=== PATIENT | male | born 1970 | race Caucasian/White ===

== ENCOUNTER → 2018-03-30 09:44 | Outpatient (CLI) | payer OTHER | END | disposition home or self-care (01) | LOC: D.RAD 09:44 | DX: Z02.71 Encounter for disability determination (principal) ==

== ENCOUNTER → 2019-12-09 09:50 | Outpatient (CLI) | payer MEDICAID | END | disposition home or self-care (01) | LOC: D.MRI 09:50 | PROVIDERS: ATTEND Orthopaedic Surgery | DX: R22.42 Localized swelling, mass and lump, left lower limb (principal) ==

== ENCOUNTER → 2020-03-04 08:59 | Outpatient (CLI) | payer MEDICAID | END | disposition home or self-care (01) | LOC: D.NM 02-26 09:00 | PROVIDERS: ATTEND Orthopaedic Surgery | DX: M25.562 Pain in left knee (principal) ==

== ENCOUNTER 2020-07-12 11:56 | Inpatient (IN) | payer MEDICAID ==
[~2020-07-12] VITALS: Ht 175.3 cm; Wt 77.1 kg
--- NOTE | 2020-07-12 12:20 | NUR ---
patient in with c/o ble edema x 2 weeks, carmelo knee pain x 10 days, worse today.
[2020-07-12 12:39] LABS: BASOPHILS 0.2 % (0-2); EOSINOPHILS 0.5 % (0-7); HEMATOCRIT 29.9 % (42.0-54.0); HEMOGLOBIN 10.6 g/dL (13.5-17.5); IMMATURE GRANULOCYTES 0.3 % (0-5); LYMPHOCYTES 12.9 % (15-50); MCHC 35.5 g/dL (31.0-37.0); MCV 109.9 fL (80.0-100.0); MEAN PLATELET VOLUME 9.9 fL (7.4-10.4); MONOCYTES 6.1 % (2-11); PLATELET COUNT 196 10x3/uL (130-400); RBC 2.72 10x6/uL (4.20-6.10); RDW 14.5 % (11.5-14.5); WBC 9.9 10x3/uL (4.8-10.8)
[2020-07-12 12:52] LABS: INR 1.23 (0.85-1.17); PROTIME 15.4 SECONDS (11.6-15.0)
[2020-07-12 12:53] LABS: APTT 33.3 SECONDS (22.8-39.4)
[2020-07-12 12:57] LABS: CALC OSMOLALITY 265 mosm/kg (275-300); CALCIUM 8.1 mg/dL (8.5-10.1); CARBON DIOXIDE 28.1 mmol/L (21.0-32.0); CHLORIDE - SERUM 99 mmol/L (98-107); CREATININE - SERUM 0.7 mg/dL (0.6-1.3); GLUCOSE 83 mg/dL (74-106); POTASSIUM - SERUM 3.1 mmol/L (3.5-5.1); SODIUM 135 mmol/L (136-145); UREA NITROGEN 4 mg/dL (7-18); eGFR NON AFRICAN AMERICAN > 90 mL/min (90-120)
[2020-07-12 13:09] LABS: ALBUMIN 2.4 g/dL (3.4-5.0); ALKALINE PHOSPHATASE 324 U/L (30-120); ALT (SGPT) 102 U/L (10-68); BILIRUBIN - TOTAL 11.17 mg/dL (0.2-1.3); MAGNESIUM - SERUM 1.5 mg/dL (1.8-2.4); PRO BNP 166 pg/mL (0-125); PROTEIN - SERUM 5.5 g/dL (6.4-8.2)
--- NOTE | 2020-07-12 13:13 | NUR ---
carmelo doppler done, pedal pulses present bilateral
[2020-07-12 13:16] LABS: TROPONIN-I < 0.017 ng/mL (0.000-0.060)
--- NOTE | 2020-07-12 15:00 | NUR ---
RECEIVED TO ROOM 2204 VIA WC FROM ER. A/O X3. NO C/O AT THIS TIME. SKIN IS INTACT WITHOUT REDNESS, 3-4 PLUS EDEMA NOTED TO BILATERAL LE. WILL MONITOR. AT BEDSIDE. DENIES NEEDS.
[2020-07-12 15:10] VITALS: BP 116/73; BMI 25.1
--- NOTE | 2020-07-12 15:30 | NUR ---
VOIDED 500CC CLEAR YELLOW URINE.
[2020-07-12] MEDS ORDERED: PLAVIX75 MG PO (15:59)
[2020-07-12] MEDS ORDERED: COREG6.25 MG PO (15:59)
[2020-07-12] MEDS ORDERED: INDOCIN25 MG PO (16:00)
[2020-07-12] MEDS ORDERED: LASIX80 MG PO (16:00)
[2020-07-12] MEDS ORDERED: VALIUM5 MG PO (16:00)
[2020-07-12] MEDS ORDERED: PREDNISONE5 MG PO (16:01)
[2020-07-12] MEDS ORDERED: SYNTHROID150 MCG PO (16:01)
[2020-07-12] MEDS ORDERED: SYMBICORT 80-10.2 GM INH (16:03)
[2020-07-12] MEDS ORDERED: ZYLOPRIM100 MG PO (16:04)
[2020-07-12] MEDS ORDERED: K-DUR20 MEQ PO (16:04)
[2020-07-12] MEDS ORDERED: FOLIC ACID1 MG PO (16:05)
[2020-07-12] MEDS ORDERED: NITROSTAT0.4 MG SL (16:05)
[2020-07-12] MEDS ORDERED: HYDROCODON-ACE1 EA10 PO (16:06)
[2020-07-12 16:43] VITALS: BP 116/73
--- NOTE | 2020-07-12 17:30 | NUR ---
BROUGHT FOOD IN FROM OUTSIDE AND PATIENT ATE 100%. NO CHANGES NOTED. DENIES NEEDS.
[2020-07-12 20:00] VITALS: BP 100/60
[2020-07-13] VITALS (7 sets, daily range): BP systolic 89–112; BP diastolic 54–64; Ht 175.3 cm; Wt 77.1 kg
--- NOTE | 2020-07-13 01:13 | NUR ---
MANUAL BP ASSESSED 112/58
--- NOTE | 2020-07-13 01:15 | NUR ---
PATIENT BECOMING ANXIOUS AND WORRYSOME. PROVIDED SUPPORT TO PATIENT. ADMINISTERED PRN VALUM FOR ANXIETY.
--- NOTE | 2020-07-13 02:28 | NUR ---
PATIENT CALMING, REPORTS "I AM FEELING MUCH BETTER." APPEARS WITH NO DISTRESS. CPOC.
[2020-07-13 04:49] LABS: BASOPHILS 0.1 % (0-2); EOSINOPHILS 0.5 % (0-7); HEMATOCRIT 26.8 % (42.0-54.0); HEMOGLOBIN 9.2 g/dL (13.5-17.5); IMMATURE GRANULOCYTES 0.3 % (0-5); LYMPHOCYTES 18.6 % (15-50); MCH 37.6 pg (26.0-34.0); MCHC 34.3 g/dL (31.0-37.0); MCV 109.4 fL (80.0-100.0); MEAN PLATELET VOLUME 10.3 fL (7.4-10.4); MONOCYTES 6.5 % (2-11); PLATELET COUNT 166 10x3/uL (130-400); RBC 2.45 10x6/uL (4.20-6.10); RDW 14.6 % (11.5-14.5); WBC 7.8 10x3/uL (4.8-10.8)
[2020-07-13 05:09] LABS: ALBUMIN 2.1 g/dL (3.4-5.0); ALKALINE PHOSPHATASE 287 U/L (30-120); ALT (SGPT) 87 U/L (10-68); BILIRUBIN - TOTAL 11.59 mg/dL (0.2-1.3); CALC OSMOLALITY 271 mosm/kg (275-300); CALCIUM 7.7 mg/dL (8.5-10.1); CARBON DIOXIDE 31.4 mmol/L (21.0-32.0); CHLORIDE - SERUM 98 mmol/L (98-107); CREATININE - SERUM 0.7 mg/dL (0.6-1.3); GLUCOSE 89 mg/dL (74-106); MAGNESIUM - SERUM 1.8 mg/dL (1.8-2.4); PROTEIN - SERUM 4.8 g/dL (6.4-8.2); SODIUM 138 mmol/L (136-145); UREA NITROGEN 5 mg/dL (7-18); eGFR NON AFRICAN AMERICAN > 90 mL/min (90-120)
[2020-07-13 05:25] LABS: POTASSIUM - SERUM 2.7 mmol/L (3.5-5.1)
[2020-07-13 14:03] LABS: MAGNESIUM - SERUM 1.8 mg/dL (1.8-2.4); POTASSIUM - SERUM 3.1 mmol/L (3.5-5.1)
[2020-07-13 17:15] LABS: CKMB 0.8 U/L (0.0-3.6); CREATINE KINASE 34 UL (21-232); TROPONIN-I 0.022 ng/mL (0.000-0.060)
--- NOTE | 2020-07-13 17:46 | NUR ---
PT STATED FEELING RESTLESS AND ANXIOUS AND REQUESTED VALIUM MEDICATION. HE ALSO IS HAVING SOME ABDOMINAL DISCOMFORT AND REQUEST PAIN MEDICATION AND WAS INFORMED THAT IS SCHEDULED UNTIL 2099.
--- NOTE | 2020-07-13 18:30 | NUR ---
PER PT HE IS FEELING LESS ANXIOS AND IS ONLY CONCERN ABOUT HIS PAIN AT THE MOMENT, HE WAS EXPLAINED THAT HE HAS A PAIN MED SCHEDULED @2100.
[2020-07-13 22:28] LABS: CKMB 0.9 U/L (0.0-3.6); CREATINE KINASE 38 UL (21-232); TROPONIN-I 0.022 ng/mL (0.000-0.060)
[2020-07-14] VITALS: BP 93/57
[2020-07-14 04:00] VITALS: BP 100/56
[2020-07-14 05:23] LABS: INR 1.28 (0.85-1.17); PROTIME 15.9 SECONDS (11.6-15.0)
[2020-07-14 05:29] LABS: ALKALINE PHOSPHATASE 264 U/L (30-120); ALT (SGPT) 91 U/L (10-68); BILIRUBIN - TOTAL 12.63 mg/dL (0.2-1.3); CALC OSMOLALITY 266 mosm/kg (275-300); CALCIUM 7.5 mg/dL (8.5-10.1); CARBON DIOXIDE 31.2 mmol/L (21.0-32.0); CHLORIDE - SERUM 96 mmol/L (98-107); CKMB 0.8 U/L (0.0-3.6); CREATINE KINASE 38 UL (21-232); GLUCOSE 104 mg/dL (74-106); MAGNESIUM - SERUM 2.1 mg/dL (1.8-2.4); PROTEIN - SERUM 4.9 g/dL (6.4-8.2); SODIUM 135 mmol/L (136-145); TROPONIN-I < 0.017 ng/mL (0.000-0.060); UREA NITROGEN 5 mg/dL (7-18); eGFR NON AFRICAN AMERICAN 85 mL/min (90-120)
[2020-07-14 05:32] LABS: BASOPHILS 0.3 % (0-2); EOSINOPHILS 0.5 % (0-7); HEMATOCRIT 25.5 % (42.0-54.0); HEMOGLOBIN 8.7 g/dL (13.5-17.5); IMMATURE GRANULOCYTES 0.5 % (0-5); LYMPHOCYTES 19.4 % (15-50); MCH 38.2 pg (26.0-34.0); MCHC 34.1 g/dL (31.0-37.0); MEAN PLATELET VOLUME 10.9 fL (7.4-10.4); MONOCYTES 6.5 % (2-11); NEUTROPHILS 72.8 % (40-80); PLATELET COUNT 165 10x3/uL (130-400); RBC 2.28 10x6/uL (4.20-6.10); RDW 14.8 % (11.5-14.5); WBC 7.8 10x3/uL (4.8-10.8)
[2020-07-14 05:33] LABS: MCV 111.8 fL (80.0-100.0)
[2020-07-14 05:38] LABS: PHOSPHOROUS 2.2 mg/dL (2.5-4.9)
--- NOTE | 2020-07-14 07:47 | NUR ---
ALERT AND ORIENTED. LUNGS CLEAR BILATERALLY. HEART SOUNDS S1 AND S2 HEARD IN ALL [place]. BOWEL SOUNDS ACTIVE X 4. IV TO RIGHT AC PATENT WITHOUT REDNESS. DENIES NEEDS. BED LOW. CALL SAUCEDA AND PERSONAL ITEMS IN REACH. WILL CONTINUE TO MONITOR.
[2020-07-14 08:22] VITALS: BP 94/63
--- NOTE | 2020-07-14 10:56 | NUR ---
PATIENT EATING BREAKFAST NOW AFTER MRI ABDOMEN. REQUESTED TO DO EKG FROM 1030 AFTER FINISHES BREAKFAST.
[2020-07-14 12:46] VITALS: BP 134/100
--- NOTE | 2020-07-14 13:05 | NUR ---
XL KATELYN HOSE PLACED ON PATIENT PER ORDER.
[2020-07-14 13:11] LABS: HEPATITIS C ANTIBODY <0.1 S/CO RAT (0.0-0.9)
--- NOTE | 2020-07-14 14:59 | NUR ---
RESTING IN BED. DENIES NEEDS. WILL CONTINUE TO MONITOR.
[2020-07-14 17:56] VITALS: BP 115/23
--- NOTE | 2020-07-14 19:30 | NUR ---
PT IN BED, AAO X 3, RESP EVEN AND UNLABORED, NO DISTRESS NOTED, CL IN REACH, SR UP X 2.
[2020-07-14 20:00] VITALS: BP 81/41
[2020-07-15] VITALS: BP 82/49
--- NOTE | 2020-07-15 02:48 | NUR ---
I have reviewed this patient and I concur with the Shift Assessment completed by the Licensed Practical Nurse today this shift.
[2020-07-15 04:00] VITALS: BP 80/57
[2020-07-15 06:26] LABS: BASOPHILS 0.1 % (0-2); EOSINOPHILS 1.1 % (0-7); HEMOGLOBIN 8.5 g/dL (13.5-17.5); IMMATURE GRANULOCYTES 0.6 % (0-5); LYMPHOCYTES 17.4 % (15-50); MCH 38.3 pg (26.0-34.0); MCV 112.6 fL (80.0-100.0); MEAN PLATELET VOLUME 11.1 fL (7.4-10.4); MONOCYTES 7.4 % (2-11); NEUTROPHILS 73.4 % (40-80); PLATELET COUNT 153 10x3/uL (130-400); RBC 2.22 10x6/uL (4.20-6.10); RDW 15.3 % (11.5-14.5); WBC 7.2 10x3/uL (4.8-10.8)
[2020-07-15 06:58] LABS: ALBUMIN 1.9 g/dL (3.4-5.0); ALKALINE PHOSPHATASE 254 U/L (30-120); ALT (SGPT) 92 U/L (10-68); BILIRUBIN - TOTAL 10.79 mg/dL (0.2-1.3); CALC OSMOLALITY 271 mosm/kg (275-300); CALCIUM 7.8 mg/dL (8.5-10.1); CHLORIDE - SERUM 101 mmol/L (98-107); CREATININE - SERUM 0.8 mg/dL (0.6-1.3); GLUCOSE 95 mg/dL (74-106); MAGNESIUM - SERUM 2.6 mg/dL (1.8-2.4); PHOSPHOROUS 2.4 mg/dL (2.5-4.9); POTASSIUM - SERUM 3.7 mmol/L (3.5-5.1); PROTEIN - SERUM 4.7 g/dL (6.4-8.2); SODIUM 137 mmol/L (136-145); UREA NITROGEN 6 mg/dL (7-18); eGFR NON AFRICAN AMERICAN > 90 mL/min (90-120)
--- NOTE | 2020-07-15 08:03 | NUR ---
resting in bed, no distress noted, tele in place, sl in place, cont to monitor labs
[2020-07-15 08:45] VITALS: BP 90/60
[2020-07-15] MEDS ORDERED: NICODERM CQ1 EAC3 TRANSDERM (08:54)
[2020-07-15] MEDS ORDERED: MUCINEX600 MG PO (08:55)
[2020-07-15] MEDS ORDERED: TESSALON PERLE100 MG PO (08:55)
[2020-07-15] MEDS ORDERED: VITAMIN B-1100 M1 PO (08:56)
[2020-07-15] MEDS ORDERED: MULTI-DAY VITAM1 TAB PO (08:56)
[2020-07-15] MEDS ORDERED: LEVOFLOXACIN500 MG PO (09:01)
[2020-07-15 11:36] VITALS: BP 84/58
[2020-07-15] MEDS ORDERED: LIBRIUM 10 MG C10 MG PO (12:10)
[2020-07-15] MEDS ORDERED: NALTREXONE HCL50 MG PO (12:10)
[2020-07-15 12:11] LABS: MITOCHONDRIAL ANTIBODY <20.0 Units (0.0-20.0); SMOOTH MUSCLE ABS (ACTIN) 9 Units (0-19)
--- NOTE | 2020-07-15 14:05 | NUR ---
DC IV, TIP INTACT, REVIEW DC ORDERS WITH PT, VOICED NO CONCERNS, PROVIDED WITH RX FOR LIBRIUM, AWAITING RIDE
--- NOTE | 2020-07-15 14:18 | MORECARE ---
CASE MANAGEMENT DISCHARGE SUMMARY PATIENT: JESSIKA CHOI III UNIT: [id number] ADM DATE: 07/12/20 AGE: 49 : 74 SEX: M ROOM/BED: D.2204 AUTHOR: PHILLY MCADAMS PHYSICIAN: REFERRING PHYSICIAN: MIK DAVILA MD DATE OF SERVICE: 07/15/20 Discharge Plan Patient Name: JESSIKA CHOI Facility: [facility]:[place] : 1970 Planned Disposition: Home or Self Care Anticipated Discharge Date: Discharge Date: Expected LOS: Initial Reviewer: [email or web address] Initial Review Date: 07/12/2020 Generated: 07/15/20 3:17 pm Comments DCP- Discharge Planning Updated by [email or web address]: Tabatha Jang on 07/15/20 1:[address] PER ANANYA FREITAS, PATIENT DOES NOT WANT HOME HEALTH OR ETOH INFORMATION HE WAS READY TO GO HOME Patient Name: JESSIKA CHOI Page [id number] at 1418 All edits/amendments must be made on the electronic document DICTATION DATE: 07/15/201416 DIRECTOR OF STUDENT AFFAIRS: VINNY 07/15/201416 RPT#: [id number] DC DATE: STATUS: ADM IN [facility] [address] [place] [address] END OF REPORT
--- NOTE | 2020-07-15 15:26 | MORECARE ---
CASE MANAGEMENT DISCHARGE SUMMARY PATIENT: JESSIKA CHOI III UNIT: [id number] ADM DATE: 07/12/20 AGE: 49 : 74 SEX: M ROOM/BED: D.2204 AUTHOR: PHILLY MCADAMS PHYSICIAN: REFERRING PHYSICIAN: MIK DAVILA MD DATE OF SERVICE: 07/15/20 Discharge Plan Patient Name: JESSIKA CHOI Facility: [facility]:[place] : 1970 Planned Disposition: Home or Self Care Anticipated Discharge Date: Discharge Date: Expected LOS: Initial Reviewer: [email or web address] Initial Review Date: 07/12/2020 Generated: 07/15/20 4:25 pm Comments DCP- Discharge Planning Updated by [email or web address]: Tabatha Jang on 07/15/20 2:[address] CM WILL PROVIDE TRANSPORTATION FOR PATIENT TO GO TO [address] [place] [address] IN [facility] COST $32.00 CM WILL PAY FOR IT DCP- Discharge Planning Updated by [email or web address]: Tabatha Jang on 07/15/20 1:[address] PER ANANYA FREITAS, PATIENT DOES NOT WANT HOME HEALTH OR ETOH INFORMATION HE WAS READY TO GO HOME Last DP export: 07/15/20 1:17 Patient Name: JESSIKA CHOI Page [phone] at 1526 All edits/amendments must be made on the electronic document DICTATION DATE: 07/15/201524 [employer] DIRECTOR: VINNY 07/15/201524 RPT#: [id number] DC DATE: STATUS: ADM IN [facility] [address] [place] [address] END OF REPORT
--- NOTE | 2020-07-15 15:53 | NUR ---
TAKEN TO TAXI TO RIDE HOME
--- NOTE | 2020-07-17 08:56 | MORECARE ---
CASE MANAGEMENT DISCHARGE SUMMARY PATIENT: JESSIKA CHOI III UNIT: [id number] ADM DATE: 07/12/20 AGE: 49 : 74 SEX: M ROOM/BED: D.2204 AUTHOR: PHILLY MCADAMS PHYSICIAN: REFERRING PHYSICIAN: MIK DAVILA MD DATE OF SERVICE: 07/17/20 Discharge Plan Patient Name: JESSIKA CHOI Facility: [facility]:[place] : 1970 Planned Disposition: Home or Self Care Anticipated Discharge Date: Discharge Date: 07/15/2020 Expected LOS: 0 Initial Reviewer: [email or web address] Initial Review Date: 07/12/2020 Generated: 07/17/20 9:56 am Comments DCP- Discharge Planning Updated by [email or web address]: Tabatha Jang on 07/15/20 2:[address] CM WILL PROVIDE TRANSPORTATION FOR PATIENT TO GO TO [address] [place] [address] COST $32.00 CM WILL PAY FOR IT DCP- Discharge Planning Updated by [email or web address]: Tabatha Jang on 07/15/20 1:[address] PER ANANYA FREITAS, PATIENT DOES NOT WANT HOME HEALTH OR ETOH INFORMATION HE WAS READY TO GO HOME Last DP export: 07/15/20 2:26 Patient Name: JESSIKA CHOI Page [phone] at 0856 All edits/amendments must be made on the electronic document DICTATION DATE: 07/17/20855 ACCOUNT SUPPORT ANALYST: VINNY 07/17/20 0856 RPT#: [id number] DC DATE:07/15/20 STATUS: DIS IN [facility] [address] [facility] [place] [address] END OF REPORT
== END 2020-07-15 16:00 | disposition home or self-care (01) | DRG 291 ==
LOC: D.ER 11:56 → D.MS 14:05 → D.ER 14:22 → D.MS 07-15 16:00
PROVIDERS: Family Medicine; Internal Medicine Gastroenterology; ADMIT Family Medicine; ATTEND Family Medicine
DX: I11.0 Hypertensive heart disease with heart failure (principal); I50.31 Acute diastolic (congestive) heart failure; F10.10 Alcohol abuse, uncomplicated; R10.9 Unspecified abdominal pain; I25.10 Atherosclerotic heart disease of native coronary artery without angina pectoris; R74.8 Abnormal levels of other serum enzymes; E83.42 Hypomagnesemia; E87.6 Hypokalemia; D53.9 Nutritional anemia, unspecified